=== PATIENT | female | born 1940 | race Caucasian/White ===

== ENCOUNTER → 2016-11-04 | Outpatient (CLI) | payer OTHER, MEDICARE | END | disposition home or self-care (01) | DX: M17.11 Unilateral primary osteoarthritis, right knee (principal); R26.2 Difficulty in walking, not elsewhere classified; M62.81 Muscle weakness (generalized); M25.661 Stiffness of right knee, not elsewhere classified | CPT/HCPCS: 97110 GP; 97150 GO; 97161 GP; 97165 GO; G8978 GP; G8979 GP; G8980 GP; G8987 GO; G8988 GO; G8989 GO ==

== ENCOUNTER 2016-12-09 05:09 | Inpatient (IN) | payer OTHER, MEDICARE ==
[~2016-12-09] VITALS: Ht 160 cm; Wt 97.0 kg
[~2016-12-09 05:09] MED LIST: DESYREL100 MG PO; ELAVIL10 MG PO; FERROUS SULFAT325 MG PO; FOLIC ACID1 MG PO; GLUCOTROL XL10 MG PO; LASIX20 MG PO; LEVO-T88 MCG PO; LIPITOR20 MG PO; LISINOPRIL5 MG PO; MAG-OXIDE400 MG PO; METFORMIN HCL1000 MG PO; METHOTREXATE2.5 MG PO; NORVASC5 MG PO; PRADAXA150 MG PO; PREDNISONE5 MG PO; PROTONIX40 MG PO; QUESTRAN PACKET4 GM PO; TYLENOL EXTRA500 MG PO
[2016-12-09 06:10] VITALS: BP 144/70
[2016-12-09 06:41] LABS: ALKALINE PHOSPHATASE 75 IU/L (3-129); ANION GAP 10 MEQ/L (2-14); CHLORIDE 103 MEQ/L (99-109); GFR ESTIMATE (CALCULATED) > 59 mL/min/; GLUCOSE 171 mg/dL (70-99); POTASSIUM 4.5 MEQ/L (3.7-5.4); SAMPLE HEMOLYSIS CHECK 0; SAMPLE ICTERIC CHECK 0; SAMPLE LIPEMIA CHECK 0; SODIUM 138 MEQ/L (136-147); TOTAL BILIRUBIN 0.3 MG/DL (0.0-1.0); UREA NITROGEN (BUN) 19 mg/dL (9-23)
[2016-12-09 09:24] LABS: POINT-OF-CARE METER ID UU13113675
[2016-12-09 11:24] LABS: HEMATOCRIT 37.2 % (36.0-46.0); MCHC 30.4 G/DL (30.0-36.0); MCV 85.7 FL (83-99); MEAN PLAT.VOLUME 9.6 uM^3 (9.5-12.4); PLATELET COUNT 544 K/uL (156-360); RBC DIS.WIDTH-CV 21.2 % (11.8-14.6); RBC DIS.WIDTH-SD 65.2 % (39-53); RED BLOOD COUNT 4.34 M/uL (3.80-5.20)
[2016-12-09 11:33] LABS: WHITE BLOOD COUNT 13.5 K/uL (4.1-10.2)
[2016-12-09 12:32] VITALS: BP 165/78
[2016-12-09 15:48] VITALS: BP 169/81
[2016-12-09 16:30] LABS: POINT-OF-CARE METER ID UU13113712
[2016-12-09 20:11] VITALS: BP 171/74
[2016-12-09 22:13] LABS: POINT-OF-CARE METER ID UU13113712
[2016-12-10 00:15] VITALS: BP 165/74
[2016-12-10 04:12] VITALS: BP 159/72
[2016-12-10 05:56] LABS: ANION GAP 9 MEQ/L (2-14); CHLORIDE 99 MEQ/L (99-109); GFR ESTIMATE (CALCULATED) > 59 mL/min/; GLUCOSE 146 mg/dL (70-99); POTASSIUM 3.7 MEQ/L (3.7-5.4); SAMPLE HEMOLYSIS CHECK 0; SAMPLE ICTERIC CHECK 0; SAMPLE LIPEMIA CHECK 0; SODIUM 133 MEQ/L (136-147); UREA NITROGEN (BUN) 14 mg/dL (9-23)
[2016-12-10 08:15] VITALS: BP 139/64
[2016-12-10 11:47] VITALS: BP 135/60
[2016-12-10 11:51] LABS: POINT-OF-CARE METER ID UU13113712
[2016-12-10 15:46] VITALS: BP 136/62
[2016-12-10 16:38] LABS: POINT-OF-CARE METER ID UU13113712
[2016-12-10 19:30] VITALS: BP 110/68
[2016-12-10 21:47] LABS: POINT-OF-CARE METER ID UU13113712
[2016-12-11] VITALS (7 sets, daily range): BP systolic 146–174; BP diastolic 70–88
[2016-12-11 05:31] LABS: MCV 83.3 FL (83-99)
[2016-12-11 07:36] LABS: POINT-OF-CARE METER ID UU13113712
[2016-12-11 12:58] LABS: POINT-OF-CARE METER ID UU13113712
[2016-12-11 16:45] LABS: POINT-OF-CARE METER ID UU13113712
[2016-12-12 00:11] VITALS: BP 159/75
[2016-12-12 07:05] LABS: POINT-OF-CARE METER ID UU14149397
[2016-12-12 07:15] VITALS: BP 143/82
[2016-12-12] MEDS ORDERED: SENNA PLUS TAB1 EACH PO (07:36)
[2016-12-12] MEDS ORDERED: CELECOXIB200 MG PO (07:37)
[2016-12-12] MEDS ORDERED: LOVENOX40 MG/0.4 SC (07:37)
[2016-12-12] MEDS ORDERED: ENDOCET 5-3251 EACH PO (07:37)
== END 2016-12-12 09:50 | DRG 470 ==
LOC: 3WEST 05:09 → 2SOUTH 05:09 → 3WEST 12:21 → 2SOUTH 13:19 → 3EAST 12-11 17:45
PROVIDERS: Orthopaedic Surgery
PROC: 0SRC0JA Replacement of Right Knee Joint with Synthetic Substitute, Uncemented, Open Approach (ICD-10-PCS; principal; 2016-12-09)
DX: M17.11 Unilateral primary osteoarthritis, right knee (principal); I11.0 Hypertensive heart disease with heart failure; I50.9 Heart failure, unspecified; I48.91 Unspecified atrial fibrillation; I25.10 Atherosclerotic heart disease of native coronary artery without angina pectoris; E11.9 Type 2 diabetes mellitus without complications; E03.9 Hypothyroidism, unspecified; K21.9 Gastro-esophageal reflux disease without esophagitis; E78.5 Hyperlipidemia, unspecified; M06.9 Rheumatoid arthritis, unspecified
CPT/HCPCS: 71010; 73560; 80048; 80053; 82948; 85014; 85018; 85027; C1713; J0690; J1170; J1650; J1720; J1815; J2250; J2405; J3010; J7030; J7050; J7512; J8610